=== PATIENT | male | born 1985 | race Caucasian/White ===

== ENCOUNTER → 2017-08-21 | Outpatient (CLI) | payer OTHER ==
--- NOTE | 2017-08-21 20:41 | MR ---
EXAMINATION TYPE: MR lumbar spine wo con DATE OF EXAM: 08/21/2017 6:37 PM COMPARISON: NONE HISTORY: Low Back Pain x20 years Multiplanar, MultiSpin echo imaging of the lumbar spine was performed. L1-L2: Normal disc appearance without desiccation. No herniation, protrusion or disc bulging. No ca nal stenosis is present. Foramina are patent bilaterally. L2-L3: Normal disc appearance without desiccation. No herniation, protrusion or disc bulging. No ca nal stenosis is present. Foramina are patent bilaterally. L3-L4: Normal disc appearance without desiccation. No herniation, protrusion or disc bulging. No ca nal stenosis is present. Foramina are patent bilaterally. L4-L5: Mild degenerative disc desiccation. Posterior disc bulge with annular tear posteriorly central ly. Mild effacement ventral thecal sac. No evidence for central stenosis. Facet joint arthropathy mil d in degree. Mild bilateral foraminal encroachment. L5-S1: Mild to moderate disc desiccation. Mild posterocentral disc protrusion. Mild effacement ventra l thecal sac. No evidence for central stenosis or lateral recess stenosis. Bilateral foramina are pat ent. Lumbar segments are intact. No paraspinal masses are identified. Conus medullaris has a normal appe arance. IMPRESSION: 1. Degenerative disc disease. 2. Mild posterocentral disc protrusion L5-S1 and mild disc bulge with annular tear L4-5 as discussed above.
== END | disposition home or self-care (01) ==
LOC: RADMRIMAIN 17:59
PROVIDERS: ATTEND Family Medicine
DX: M51.27 Other intervertebral disc displacement, lumbosacral region (principal); M51.36 Other intervertebral disc degeneration, lumbar region
CPT/HCPCS: 72148

== ENCOUNTER → 2018-07-26 | Outpatient (CLI) | payer OTHER ==
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
== END | disposition home or self-care (01) ==
LOC: RADXRMAIN 16:10
PROVIDERS: ATTEND Physician Assistant
DX: M25.531 Pain in right wrist (principal)

== ENCOUNTER → 2020-12-14 | Outpatient (CLI) | payer MEDICARE, OTHER ==
[2020-12-14 09:35] VITALS: BP 163/120; PULSE 82; RESP 18; TEMP 98.1
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
== END ==
LOC: PNWHC3 09:05
DX: G44.89 Other headache syndrome (principal); Z87.891 Personal history of nicotine dependence; I10 Essential (primary) hypertension
CPT/HCPCS: 99211

== ENCOUNTER 2021-01-19 07:39 | Day surgery (SDC) | payer MEDICARE, OTHER ==
[2021-01-14 10:27] VITALS: BMI 22.3
[~2021-01-19 07:39] MED LIST: LACTATED RINGERS 1,000 ML IV SCH
[2021-01-19 07:58] VITALS: RESP 16; TEMP 97.5
[2021-01-19] MEDS ORDERED: LIDOCAINE 1% (10MG/ML) FOR IV START INTRADERMA ONE (08:03)
[2021-01-19] MEDS ORDERED: MIDAZOLAM 2 MG/2 ML VIAL ONE (08:08)
[2021-01-19] MEDS ORDERED: ROPIVACAINE 5MG/ML 20ML VIAL ONE (08:08)
[2021-01-19] MEDS ORDERED: fentaNYL (PF) 50 MCG/ML 2 ML AMP ONE (08:08)
[2021-01-19] MEDS ORDERED: methylPREDNISolone ACETATE 40 MG/ML 1 ML VIAL ONE (08:08)
[2021-01-19] MEDS ORDERED: IV FLUID CONTINUATION 1,000 ML IV ONE ×2 (08:21)
--- NOTE | 2021-01-19 08:22 | P.PCN ---
Date of Procedure: 01/19/21 Procedure(s) Performed: Preoperative diagnoses= 1- Greater occipital neuralgia 2-cervicogenic headache. Postoperative diagnoses= same as preoperative diagnosis. Procedure= Bilateral Greater occipital nerve block Anesthesia= moderate sedation with Versed 2 mg and fentanyl 50 micrograms . Estimated blood loss=minimal. Procedure indication= the patient had a history of severe chronic neck pain ,and headache, diagnosed with occipital neuralgia exam was positive for severe tenderness over the occipital nerve bilaterally, she will be a good candidate occipital nerve block, patient failed conservative management Procedure description= the patient was seen and identified in the preoperative holding area, risks and benefits and alternative of the procedure and possible complications discussed with the patient, and he agreed with the preceding, patient signed the consent, an IV was started, and vital signs were monitored and were stable throughout the procedure, patient was placed in the sitting position or table and the neck area was prepped and draped with a sterile fashion, vital signs were closely monitored during the procedure, 25-gauge needle advanced 1 inch lateral to the occipital protuberance on the right side, at the location of the right occipital nerve , then after negative aspiration for heme and CSF and there was no paresthesia during the injection, 6 ml of Robivacaine 0.5% and 40 mg of Depo-Medrol injected after negative aspiration, the needle removed, and the entire same procedure was repeated for the left Greater occipital nerve. Patient tolerated the procedure well without any complication, The patient returned to supine position after the back was cleaned and a Band- Aid applied, the patient transported to recovery room in stable condition and he was monitored for 30 minutes before he was discharged home and then patient was reexamined before going home and patient was discharged in stable condition and patient will follow up with the pain clinic in a few weeks.
[2021-01-19 08:45] VITALS: BP 131/84; PULSE 87
== END 2021-01-19 08:51 | disposition home or self-care (01) ==
LOC: ORPAIN 07:39
PROVIDERS: ATTEND Specialist
DX: M54.81 Occipital neuralgia (principal)
CPT/HCPCS: 64405; J2250; J1030; J3010; J2795

== ENCOUNTER → 2021-12-03 | Outpatient (CLI) | payer MEDICARE, OTHER ==
[2021-12-04 13:48] LABS: Coronavirus SARS CoV-2 Not Detected (Not Detected)
== END | disposition home or self-care (01) ==
LOC: LABWHC1 08:59
PROVIDERS: ATTEND Family Medicine
DX: Z20.822 Contact with and (suspected) exposure to COVID-19 (principal); J06.9 Acute upper respiratory infection, unspecified
CPT/HCPCS: 87502; U0003; C9803

== ENCOUNTER 2023-10-13 21:43 | Emergency (ER) | payer MEDICARE, OTHER ==
[2023-10-13 22:10] VITALS: TEMP 99.4
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
[2023-10-13 23:43] VITALS: BP 137/104; PULSE 86; RESP 18
== END 2023-10-13 23:34 | disposition home or self-care (01) ==
LOC: EC 21:43
DX: R51.9 Headache, unspecified (principal); I10 Essential (primary) hypertension; F90.9 Attention-deficit hyperactivity disorder, unspecified type; Z79.899 Other long term (current) drug therapy; Z87.891 Personal history of nicotine dependence; V53.6XXA Passenger in pick-up truck or van injured in collision with car, pick-up truck or van in traffic accident, initial encounter; Y92.410 Unspecified street and highway as the place of occurrence of the external cause
CPT/HCPCS: 99283

== ENCOUNTER 2024-09-17 22:45 | Emergency (ER) | payer MEDICARE, OTHER ==
[2024-09-17 23:01] VITALS: RESP 18
--- NOTE | 2024-09-17 23:34 | ED ---
General Adult HPI - General Chief complaint: Upper Respiratory Infection Stated complaint: Cough, Throat Pain Time Seen by Provider: 09/17/24 23:34 Source: patient Mode of arrival: ambulatory Limitations: no limitations - History of Present Illness Initial comments: 39-year-old male presenting with chief complaint of cough. Patient states that his cough started last week. He also admits to congestion and sore throat. He seen his PCP and was started on what he believes to be antibiotics, he is unsure what the name of the medication was. States that he is almost out of this medication and his symptoms have not improved. No fever. States that his cough is productive. No chest pain or difficulty breathing. No nausea vomiting or ab dominal pain. - Related Data Home Medications Medication Instructions Recorded Confirmed HYDROcodone/APAP 10-325MG [[place] 10 - 325 mg PO DAILY 12/14/20 02/05/21 10-325] Ibuprofen [Motrin] 800 mg PO DAILY 12/14/20 02/05/21 Topiramate [Topamax] 50 mg PO Q12HR PRN 12/14/20 02/05/21 Vortioxetine Hydrobromide 10 mg PO DAILY 12/14/20 02/05/21 [Trintellix] Verapamil HCl [Verapamil ER] 180 mg PO DAILY 02/05/21 02/05/21 Previous Rx's Medication Instructions Recorded Benzonatate [Tessalon Perles] 100 mg PO TID PRN #9 capsule 09/18/24 Allergies Allergy/AdvReac Type Severity Reaction Status Date / Time No Known Allergies Allergy Verified 09/17/24 22:58 Review of Systems ROS Statement: Those systems with pertinent positive or pertinent negative responses have been documented in the HPI. ROS Other: All systems not noted in ROS Statement are negative. Past Medical History Past Medical History: Hypertension Additional Past Medical History / Comment(s): headaches, chronic back pain, covid History of Any Multi-Drug Resistant Organisms: None Reported Additional Past Surgical History / Comment(s): dental work pain clinic Past Anesthesia/Blood Transfusion Reactions: No Reported Reaction Past Psychological History: ADD/ADHD Smoking Status: Former smoker Past Alcohol Use History: None Reported Past Drug Use History: None Reported - Past Family History Father Family Medical History: Cancer General Exam - General Exam Comments Initial Comments: Visual Physical Exam Vital signs reviewed General: Well-appearing, nontoxic, no acute distress. Head: Normocephalic, atraumatic Eyes: PERRLA, EOMI ENT: Airway patent Chest: Nonlabored breathing Skin: No visual rash, normal skin tone Neuro: Alert and oriented 3 Musculoskeletal: No gross abnormalities Limitations: no limitations General appearance: alert, in no apparent distress Head exam: Present: atraumatic, normocephalic, normal inspection Eye exam: Present: normal appearance, EOMI ENT exam: Present: mucous membranes moist Neck exam: Present: normal inspection. Absent: meningismus Respiratory exam: Present: normal lung sounds bilaterally. Absent: respiratory distress, wheezes, rales, rhonchi, stridor Cardiovascular Exam: Present: regular rate, normal rhythm, normal heart sounds. Absent: systolic murmur, diastolic murmur, rubs, gallop, clicks Neurological exam: Present: alert, oriented X3 Psychiatric exam: Present: normal affect, normal mood Skin exam: Present: normal color Course Vital Signs 09/17/24 09/18/24 22:59 00:59 Temperature 98.6 F 98.1 F Pulse Rate 90 98 Respiratory 18 18 Rate Blood Pressure 171/80 132/87 O2 Sat by Pulse 97 98 Oximetry Medical Decision Making - Medical Decision Making I performed the quick note portion of this visit, electronically signed Radha Lawson PA-C Was pt. sent in by a medical professional or institution ([facility] Amaral, CHILD AND FAMILY COUNSELOR, urgent care, hospital, or alf...) When possible be specific @ -No Did you speak to anyone other than the patient for history (EMS, parent, family, police, friend...)? What history was obtained from this source @ -No Did you review nursing and triage notes (agree or disagree)? Why? @ -I reviewed and agree with nursing and triage notes Were old charts reviewed (outside hosp., previous admission, EMS record, old EKG, old radiological studies, urgent care reports/EKG's, alf records)? Report findings @ -No old charts were reviewed Differential Diagnosis (chest pain, altered mental status, abdominal pain women, abdominal pain men, vaginal bleeding, weakness, fever, dyspnea, syncope, headache, dizziness, GI bleed, back pain, seizure, CVA, palpatations, mental health, musculoskeletal)? @ -Differential includes influenza, RSV, COVID, group A strep, pneumonia, bronchitis, this is not an all-inclusive list EKG interpreted by me (3pts min.). @ -As above X-rays interpreted by me (1pt min.). @ -Chest x-ray shows no acute process on preliminary reading. Formal report is still pending CT interpreted by me (1pt min.). @ -None done U/S interpreted by me (1pt. min.). @ -None done What testing was considered but not performed or refused? (CT, X-rays, U/S, labs)? Why? @ -None What meds were considered but not given or refused? Why? @ -None Did you discuss the management of the patient with other professionals (professionals i.e. , PA, CHILD AND FAMILY COUNSELOR, lab, RT, psych nurse, clinical social work therapist, spring bender, teacher, veterans service officer, case investigator)? Give summary @ -No Was smoking cessation discussed for >3mins.? @ -No Was critical care preformed (if so, how long)? @ -No Were there social determinants of health that impacted care today? How? (Homelessness, low income, unemployed, alcoholism, drug addiction, transportation, low edu. Level, literacy, decrease access to med. care, [facility], rehab)? @ -No Was there de-escalation of care discussed even if they declined (Discuss DNR or withdrawal of care, Hospice)? DNR status @ -No What co-morbidities impacted this encounter? (DM, HTN, Smoking, COPD, CAD, Cancer, CVA, ARF, Chemo, Hep., AIDS, mental health diagnosis, sleep apnea, morbid obesity)? @ -None Was patient admitted / discharged? Hospital course, mention meds given and route, prescriptions, significant lab abnormalities, going to OR and other pertinent info. @ -39-year-old male presenting with chief complaint of cough congestion and sore throat. History and physical examination are conducted. Patient is positive for RSV. Negative for influenza, COVID, group A strep. No acute process seen on preliminary reading of chest x-ray, formal report is pending. Patient is educated on today's findings. He is provided with Tessalon Perles for his cough. Discharged. Follow-up with PCP. Report back to ER with any new or worsening symptoms. Discussed return parameters and answered all questions. Patient conveyed verbal understanding and agreed to the plan. I discussed this case in detail with my attending Dr. Cast Undiagnosed new problem with uncertain prognosis? @ -No Drug Therapy requiring intensive monitoring for toxicity (Heparin, Nitro, Insulin, Cardizem)? @ -No Were any procedures done? @ -No Diagnosis/symptom? @ -RSV Acute, or Chronic, or Acute on Chronic? @ -Acute Uncomplicated (without systemic symptoms) or Complicated (systemic symptoms)? @ -Uncomplicated Side effects of treatment? @ -No Exacerbation, Progression, or Severe Exacerbation? @ -No Poses a threat to life or bodily function? How? (Chest pain, [place], VT, pneumonia, PE, COPD, DKA, ARF, appy, cholecystitis, CVA, Diverticulitis, Homicidal, Suicidal, threat to staff... and all critical care pts) @ -Low likelihood at this time - Lab Data Lab Results 09/17/24 09/17/24 Range/Units 23:06 23:06 Influenza Type A (PCR) Not Detected (Not Detectd) Influenza Type B (PCR) Not Detected (Not Detectd) RSV (PCR) Detected A (Not Detectd) SARS-CoV-2 (PCR) Not Detected (Not Detectd) Group A Strep (PCR) NOT DETECTED (Not Detectd) Disposition Clinical Impression: RSV (respiratory syncytial virus infection) Disposition: HOME SELF-CARE Condition: Good Instructions (If sedation given, give patient instructions): Respiratory Syncytial Virus (ED) Additional Instructions: Follow-up with PCP. Report back to ER with any new or worsening symptoms. Prescriptions: Benzonatate [Tessalon Perles] 100 mg PO TID PRN #9 capsule PRN Reason: Cough Is patient prescribed a controlled substance at d/c from ED?: No Referrals: Oj Rajan MD [Primary Care Provider] - 1-2 days Time of Disposition: 00:43
[2024-09-18 01:00] VITALS: BP 132/87; PULSE 98; TEMP 98.1
--- NOTE | 2024-09-18 02:09 | XR ---
EXAM: XR Chest, 2 Views CLINICAL HISTORY: ITS.REASON XR Reason: cough TECHNIQUE: Frontal and lateral views of the chest. COMPARISON: No relevant prior studies available. FINDINGS: Lungs: No consolidation or mass. Pleural space: No effusion. Heart: No cardiomegaly. Bones/joints: No acute findings. IMPRESSION: No acute cardiopulmonary process.
== END 2024-09-18 01:00 | disposition home or self-care (01) ==
LOC: EC 22:45
DX: R05.9 Cough, unspecified (principal); B97.4 Respiratory syncytial virus as the cause of diseases classified elsewhere; Z87.891 Personal history of nicotine dependence
CPT/HCPCS: 71046; 87636; 87651; 99283